=== PATIENT | female | born 1960 | race Caucasian/White ===

== ENCOUNTER → 2018-05-08 09:56 | Outpatient (CLI) | payer OTHER, SELFPAY ==
--- NOTE | 2018-05-08 11:08 | DIET.PN ---
DIABETES Nutrition Initial Assessment:? ASSESS:?? 58 yof referred for type 2 diabetes. Pt newly diagnosed. States she has been border line for several years. Also reports family history on father?s side. Pt has not been monitoring blood glucose as she was unsure how to use meter. Since diagnosis she has begun intermittent fasting. LABS: Per pt report:? A1c: 6.8 TC: 186 T HDL: 56 LDL: 118 ? MEDS:?? n/a ? Weight: 202 (8lb wt loss since 01/16/18) ? Exercise:? walking NUTRITION DX 1. Altered Nutrition related labs related to impaired glucose metabolism, lack of previous exposure to accurate nutrition information as evidenced by pt report, dx of diabetes, previous diet high in refined carbohydrates.? INTERVENTION(s): 1. Discussed pathophysiology of diabetes. Reviewed A1c and its correlation to blood glucose numbers. Discussed recommended BG ranges. 2. Discussed importance of self-monitoring, how often, and when to check. Provided demonstration on use of glucometer. 3. Reviewed hyper/hypoglycemia and treatment. 4. Reviewed safe disposal of equipment (strip/lancets/insulin needles). 5. Discussed impact of nutrition/diet on blood sugar control.? Discussed fed versus non-fed state.?? 6. Discussed the effect of carbohydrates/protein/fat on blood sugar control.? Stressed importance of consistent carbohydrate intake at each meal and provided instructions for recommended servings/portions of carbohydrates/protein per meal. Provided pt with educational material. 7. Reviewed carbohydrate counting and measuring carbohydrate content via serving sizes and reading nutrition labels.? Provided handouts.?? 8. Discussed the difference between simple versus complex carbohydrates and the effect of fiber on blood sugar control.? Discussed various methods to increase fiber content in diet. 9. Stressed importance of meal timing and not going >4-5 hours between meals. Encouraged adding protein to each meal to support glucose control. Provided list of protein foods. Discussed best protein options for heart health and to alleviate hunger. Patient agreeable. 10. Discussed healthy weight loss through diet and exercise to increase lean muscle mass.? Pt agreeable to walking daily. MONITOR/EVALUATE: Anticipate good compliance.? Nutrition follow-up schedule for 1 mo to review BG, weight, food record and discuss protein/fat, sugar substitutes, dining out, reading food labels, sodium.
== END ==
PROVIDERS: PCP Nurse Practitioner Family; Visit Provider Nurse Practitioner Family
DX: E11.9 Type 2 diabetes mellitus without complications (principal)
CPT/HCPCS: 97802

== ENCOUNTER → 2018-06-12 09:59 | Outpatient (CLI) | payer OTHER, SELFPAY ==
--- NOTE | 2018-06-12 10:53 | DIET.PN ---
INDIVIDUAL NUTRITION ASSESSMENT? ? ASSESS:?58 yo?seen for diabetes nutrition F/U. Pt recently began monitoring BG. Has discontinued intermittent fasting and is eating consistent carb intake at each meal. States she has cut down on portions and is aiming for more protein and vegetables. Admits she does not follow her plan as strictly on the weekends. ? LABS: A1c: 6.8 FB-136 (162x1) 2 hr PP:??120-160 (>180 x3) ? Weight: 196 # (202 05/08/18)? DIET: Per recall:? B: protein shake L: meat and cheese; cottage cheese Sn: protein bar D: protein, veg, starch ? EXERCISE:??walking/hiking most days ? NUTRITION Dx? 1. Altered nutrition related labs r/t type 2 DM, inconsistent carbohydrate intake as evidenced by pt report, dietary recall.?? ? INTERVENTION? 1. Reviewed blood sugar log and implications/reasons for elevated/decreased blood sugar.? Pt with good understanding.? 2. Reviewed carbohydrate counting and importance of consistent carbohydrate intake.? 3. Reviewed meal intake and importance of balanced meals (bebo to prevent overeating).??? 4. Provided information on fat/protein intake and ways to limit saturated fat. 5. Discussed alcohol intake and effects on BG. 6. Provided information on sick day guidelines. ? MONITOR/EVALUATE: Pt receptive to information provided.? Will schedule follow-up after new labs.
== END ==
PROVIDERS: PCP Nurse Practitioner Family; Visit Provider Nurse Practitioner Family
DX: E11.9 Type 2 diabetes mellitus without complications (principal)
CPT/HCPCS: 97803

== ENCOUNTER → 2019-01-09 15:48 | Outpatient (ROUT) | payer OTHER, SELFPAY ==
[2019-01-09 16:20] LABS: Hemoglobin A1C% w Est Avg Glu 6.4 % (4.0-6.0)
[2019-01-09 16:21] LABS: Alanine Aminotransferase 36 IU/L (<35); Aspartate Aminotransferase 39 IU/L (14-36); Blood Urea Nitrogen 10 mg/dL (7-17); Calcium 9.4 mg/dL (8.4-10.2); Carbon Dioxide 30 mmol/L (22-32); Chloride 101 mmol/L (98-107); Cholesterol 161 mg/dL (140-199); Estimated Glomerular Filt Rate > 60.0 mL/min (>60); Glucose 126 mg/dL (70-100); HDL Cholesterol 73 mg/dL (40-60); HEMOLYSIS < 15 (0-50); LDL Cholesterol Calculated 76 mg/dL (<100); Potassium 4.2 mmol/L (3.4-5.1); Sodium 138 mmol/L (137-145); Triglycerides 61 mg/dL (35-150)
== END ==
PROVIDERS: PCP Nurse Practitioner Family; Visit Provider Internal Medicine
DX: I10 Essential (primary) hypertension (principal); E78.2 Mixed hyperlipidemia; E11.9 Type 2 diabetes mellitus without complications
CPT/HCPCS: 80048; 80061; 83036; 84450; 84460

== ENCOUNTER → 2021-01-12 10:51 | Outpatient (CLI) | payer OTHER, MEDICAID, SELFPAY ==
[2021-01-12 12:19] LABS: Hemoglobin A1C% w Est Avg Glu 6.3 % (4.0-6.0)
[2021-01-12 12:36] LABS: Alanine Aminotransferase 24 IU/L (<35); Albumin 4.5 g/dL (3.5-5.0); Albumin Globulin Ratio 1.7 (1.0-2.8); Alkaline Phosphatase 67 U/L (38-126); Aspartate Aminotransferase 33 IU/L (14-36); BUN Creatinine Ratio 15.3 (6-22); Bilirubin Total 0.4 mg/dL (0.2-1.3); Blood Urea Nitrogen 9 mg/dL (7-17); Calcium 9.5 mg/dL (8.4-10.2); Carbon Dioxide 29 mmol/L (22-32); Chloride 103 mmol/L (98-107); Cholesterol 171 mg/dL (140-199); Estimated Glomerular Filt Rate > 60.0 mL/min (>60); Globulin 2.6 g/dL (1.7-4.1); Glucose 115 mg/dL (70-100); HDL Cholesterol 63 mg/dL (40-60); HEMOLYSIS 22 (0-50); LDL Cholesterol Calculated 84 mg/dL (<100); Potassium 4.4 mmol/L (3.4-5.1); Sodium 139 mmol/L (137-145); Total Protein 7.1 g/dL (6.3-8.2); Triglycerides 121 mg/dL (35-150)
[2021-01-12 16:07] LABS: Creatinine Urine Random 40.4 mg/dL
[2021-01-12 16:25] LABS: Vitamin D 25 Hydroxy (D3) 36.4 ng/mL (30.0-100.0)
[2021-01-12 16:39] LABS: Microalbumin Urine Random < 0.6 mg/dL (0-1.6)
== END ==
PROVIDERS: PCP Student in an Organized Health Care Education/Training Program; Referring Provider Student in an Organized Health Care Education/Training Program; Visit Provider Student in an Organized Health Care Education/Training Program
DX: E11.9 Type 2 diabetes mellitus without complications (principal); E11.69 Type 2 diabetes mellitus with other specified complication; E78.5 Hyperlipidemia, unspecified; E55.9 Vitamin D deficiency, unspecified; Z78.0 Asymptomatic menopausal state
CPT/HCPCS: 36415; 80053; 80061; 82043; 82306; 82570; 83036

== ENCOUNTER → 2021-01-18 07:54 | Outpatient (CLI) | payer OTHER, MEDICAID, SELFPAY ==
--- NOTE | 2021-01-18 07:55 | DI.MG.S_ITS ---
BILATERAL DIGITAL SCREENING MAMMOGRAM 3D/2D WITH CAD: 01/18/2021 CLINICAL: Routine screening. Comparison is made to exams dated: 12/21/2016 mammogram, 12/02/2015 mammogram, and 11/28/2014 mammogram - [facility]. There are scattered fibroglandular elements in both breasts. Current study was also evaluated with a Computer Aided Detection (CAD) system. There are benign calcifications in the left breast. No significant masses, calcifications, or other findings are seen in either breast. There has been no significant interval change. IMPRESSION: BENIGN There is no mammographic evidence of malignancy. A 1 year screening mammogram is recommended. This exam was interpreted at Station ID: [id number]. NOTE: For mammograms, a report in lay terms will be sent to the patient. Approximately 15% of breast malignancies will not be visualized mammographically. In the management of a palpable breast mass, a negative mammogram must not discourage biopsy of a clinically suspicious lesion. Electronically Signed By: Arcadio Min acr/penrad:01/18/2021 14:14:37 letter sent: Normal Exam ACR BI-RADS Category 2: Benign Finding(s) [id number]
== END ==
PROVIDERS: PCP Student in an Organized Health Care Education/Training Program; Referring Provider Student in an Organized Health Care Education/Training Program; Visit Provider Student in an Organized Health Care Education/Training Program
DX: Z12.31 Encounter for screening mammogram for malignant neoplasm of breast (principal)
CPT/HCPCS: 77063; 77067

== ENCOUNTER 2021-03-20 01:09 | Observation (INO) | payer OTHER, MEDICAID, SELFPAY ==
[2021-03-20] VITALS (11 sets, daily range): BP systolic 127–167; BP diastolic 65–98; PULSE 64–90; RESP 12–20; TEMP 36.3–36.8; O2SAT 92–98; BMI 32.5
--- NOTE | 2021-03-20 01:27 | DI.RAD.S_ITS ---
PROCEDURE: XR FEMUR RT MIN 2V INDICATIONS: Trauma, obvious injury TECHNIQUE: AP images of the femur were acquired. COMPARISON: [facility], CT, CT ANGIO LE RT, 03/20/2021, 2:04. FINDINGS: Bones: No fractures or dislocations. No suspicious bony lesions. Age-appropriate bony degenerative changes are seen. Soft tissues: Focal soft tissue swelling is seen along the medial aspect of the distal thigh. IMPRESSION: Distal thigh soft tissue swelling seen medially, which is attributed to a hematoma. Degenerative changes, without acute bony abnormality. Note: No significant discrepancy from the preliminary report. Dictated by: Fran Tatum M.D. on 03/20/2021 at 8:10 Approved by: Fran Tatum M.D. on 03/20/2021 at 8:11
[2021-03-20] MEDS: ONDANSETRON 4 MG/2 ML INJ IV ×2 (01:51→10:29)
[2021-03-20] MEDS: HYDROMORPHONE 1 MG INJ IV (01:51)
[2021-03-20] MEDS: SODIUM CHLORIDE 0.9% 500 ML 1000 ML IV (01:52)
[2021-03-20 02:00] LABS: Add Manual Diff / Slide Review NO; Basophils Absolute Auto 100 /uL (0-100); Basophils Percent Auto 0.6 % (0-2); Eosinophils Absolute Auto 100 /uL (0-450); Eosinophils Percent Auto 0.9 % (2-4); Hematocrit 35.8 % (36-46); Lymphocytes Absolute Auto 1800 /uL (1100-4500); Lymphocytes Percent Auto 12.5 % (25-40); Mean Corpuscular HGB Conc 33.6 % (30-36); Mean Corpuscular Hemoglobin 30.9 PG (26-34); Mean Corpuscular Volume 92.1 fL (80-100); Monocytes Absolute Auto 700 /uL (0-900); Monocytes Percent Auto 5.1 % (3-14); Neutrophils Absolute Auto 11400 /uL (1500-7000); Neutrophils Percent Auto 80.9 % (50-75); Platelet Count 383 X10^3/uL (150-400); Red Blood Cell Count 3.89 X10^6/uL (4.0-5.2); Red Cell Distribution Width 13.5 % (11.6-14.8); White Blood Cell Count 14.2 X10^3/uL (4.5-11.0)
--- NOTE | 2021-03-20 02:02 | DI.CT.S_ITS ---
PROCEDURE: CT ANGIO LE RT INDICATIONS: pain severe swelling after injury, vascular? TECHNIQUE: After the administration of intravenous contrast, 2.5 mm sections acquired from T12 to the feet, with optional delayed image acquisition from the knees to the feet. 3-dimensional maximum intensity projection (MIP) coronal and sagittal reformats, and/or 3-dimensional volume rendering reformatting was then performed. For radiation dose reduction, the following was used: automated exposure control. COMPARISON: [facility], CR, XR FEMUR RT MIN 2V, 03/20/2021, 1:30. FINDINGS: Image quality: The bolus of contrast is poorly seen distally. Extravascular tissues: Non opacified bowel loops demonstrate normal wall thickness and enhancement. No free fluid or air. No retroperitoneal or mesenteric adenopathy. The uterus appears normal for age. No adnexal masses are seen. No ventral hernias. Bladder wall thickness is normal. No inguinal hernias or adenopathy. No suspicious bony lesions. No vertebral body compression fractures. Along the medial aspect of the knee, there is an irregular hematoma seen that measures 13.8 cm craniocaudal by 12.3 cm AP by 5.5 cm transversely. Within the hematoma, there is a band of hyperdensity seen, as on series 5, image 283. Regional mass effect from the hematoma can be seen, with the distal thigh musculature deviated laterally. Soft tissue swelling is seen anterior to the patella. No fracture of the distal femur or the knee can be seen. No fractures are seen more proximally. Generalized degenerative changes are seen. Abdominal aorta: Normal. Right lower extremity: The right common iliac artery and the right external iliac artery appear normal, with atherosclerotic calcification seen. The right internal iliac artery is within normal limits. The right profunda femoris artery is within normal limits. The right superficial femoral artery is likewise within normal limits. The popliteal artery is within normal limits. The proximal portions of the trifurcation vessels can be seen and appear normal. IMPRESSION: Significant soft tissue hematoma seen along the medial aspect of the knee. There is high suspicion for active extravasation seen within the hematoma. No bony fracture can be seen. No significant arterial abnormality is seen. Note: No significant discrepancy from the preliminary report. Dictated by: Fran Tatum M.D. on 03/20/2021 at 7:48 Approved by: Fran Tatum M.D. on 03/20/2021 at 7:54
[2021-03-20 02:07] LABS: BUN Creatinine Ratio 16.9 (6-22); Blood Urea Nitrogen 10 mg/dL (7-17); Calcium 9.3 mg/dL (8.4-10.2); Carbon Dioxide 22 mmol/L (22-32); Chloride 103 mmol/L (98-107); Estimated Glomerular Filt Rate > 60.0 mL/min (>60); Glucose 141 mg/dL (70-100); HEMOLYSIS < 15 (0-50); Sodium 132 mmol/L (137-145)
--- NOTE | 2021-03-20 02:41 | PC.NURSE ---
pt was going up some steps on a camper when her foot got caught and twisted her leg, pt was able to bear minimal weight at first, accident occurred at 2200, she applied ice and took ibuprofen but the pain continued to increase and pt is now unable to bear any weight on her right leg, knee noted bruised with swelling
--- NOTE | 2021-03-20 02:46 | PC.NURSE ---
about 2200 pt was walking up some steps on a camper when her leg was caught between 2 steps and twisted, pt was able to bear minimal weight on the right leg at first, pt applied ice and took some ibuprofen but the pain continued to increase and now pt is unable to bear any weight on the leg, bruising noted around and above the knee pedal pulses +
[2021-03-20] MEDS: HYDROMORPHONE 0.5 MG INJ IV ×2 (04:10→08:53)
--- NOTE | 2021-03-20 04:23 | ED.LOWEXIN ---
HPI - Extremity Injury (Lower) General Chief Complaint: Extremity Injury, Lower Stated Complaint: rt knee pain Time Seen by Provider: 03/20/21 01:13 Source: patient Mode of arrival: Wheelchair History of Present Illness HPI Narrative: 61F nonsmoker with history of he GERD, hypertension and hyperlipidemia as well as type 2 diabetes presents with her significant other and a chief complaint of a fall resulting in significant knee pain. She had been in her normal state of health when she was backing down some unsteady stairs from her RV when her leg slipped between the stairs and she fell backwards twisting and injuring her knee. She denies any head, neck or back pain. She denies any numbness, tingling or weakness. She has ext with it pain with any palpation or range of motion of her knee. She takes no blood thinners. She last ate food at 6:00 p.m. and had a few cocktails at 9:00 p.m.. Related Data Home Medications Medication Instructions Recorded Confirmed esomeprazole magnesium 20 mg 20 mg PO DAILY 01/12/21 01/12/21 capsule,delayed release (Nexium 24HR) levocetirizine 5 mg tablet (Xyzal) 5 mg PO DAILY 01/12/21 01/12/21 metformin 500 mg tablet,extended 500 mg PO BID 01/12/21 01/12/21 release 24 hr onetouch delica lancets extra fine 01/12/21 01/12/21 33guage onetouch t/s strip 01/12/21 01/12/21 onetouch verio IQ blood glucose 01/12/21 01/12/21 meter Previous Rx's Medication Instructions Recorded alprazolam 0.5 mg tablet 0.5 mg PO DAILY PRN #10 tab 01/19/21 atorvastatin 10 mg tablet 10 mg PO BEDTIME #90 tab 01/19/21 losartan 50 mg tablet 50 mg PO DAILY #90 tab 01/19/21 oxycodone 5 mg tablet 5 mg PO PACUNOW PRN #10 tab 03/20/21 Allergies Allergy/AdvReac Type Severity Reaction Status Date / Time No Known Allergies Allergy Uncoded 01/12/21 10:00 Review of Systems Review of Systems Narrative: GENERAL: Denies chills, fatigue, malaise, fever, sweats. HEENT: Denies sinus pain, ear pain, sore throat, difficulty swallowing, dizziness. RESPIRATORY: Denies dyspnea, cough, wheezing, hemoptysis, sputum. CARDIOVASCULAR: Denies chest pain, palpitations, orthopnea, edema, GASTROINTESTINAL: Denies nausea, vomiting, abdominal pain, diarrhea, constipation, melena. : Denies dysuria, frequency, incontinence, hematuria, urinary retention. MUSCULOSKELETAL: see hPI SKIN: Denies rash, skin lesions, or other NEUROLOGIC: Denies weakness, headache, numbness, change in speech, confusion, seizures, incoordination. PSYCHIATRIC: No concerning psychosocial issues. 12 point review of systems is negative except for those stated above Patient History Medical History Allergies Chicken pox Hearing loss Measles Vision disorder Surgical History Anesthesia History of tooth extraction Family History Father Diabetes mellitus History of heart disease Grandmother Cervical cancer Diabetes mellitus Grandfather History of heart disease Grandmother Mental health problem Social History household members: spouse Smoking Status: Current every day smoker Smoking Status: Current every day smoker alcohol intake frequency: a few times a month Substance Use Type: does not use Exam Narrative Exam Narrative: GENERAL: [61] year old patient appears stated age. Well-developed patient, in obvious, significant distress complaining of severe right knee pain. GCS 15 HEAD: Atraumatic. Normocephalic. EYES: Pupils equal round and reactive. Extraocular motions intact. No scleral icterus. No injection or drainage. ENT: Nose without bleeding, purulent drainage. Throat without erythema, tonsillar hypertrophy or exudate. Airway patent. NECK: Trachea midline. Non tender CARDIOVASCULAR: Regular rate and rhythm without murmurs, gallops, or rubs. RESPIRATORY: Clear to auscultation. Breath sounds equal bilaterally. No wheezes, rales, or rhonchi. GASTROINTESTINAL: Abdomen soft, non-tender, nondistended. EXTREMITIES: Large 15 x 15 cm tense hematoma just proximal to right knee, well-circumscribed, minimal mottling of skin, quite tender. Compartments are soft, patient able to wiggle toes, ankle and foot without significant pain, dorsalis pedis intact. BACK: Nontender without deformity or crepitance. No flank tenderness. NEURO: AOx3. SKIN: No rash or erythema of visible areas Initial Vital Signs Initial Vital Signs: Vital Signs Temperature 97.3 F L 03/20/21 01:18 Pulse Rate 90 03/20/21 01:18 Respiratory Rate 20 03/20/21 01:18 Blood Pressure 167/98 H 03/20/21 01:18 Pulse Oximetry 98 03/20/21 01:18 Course Orders Ordered: Discontinued Medications Acetaminophen (Acetaminophen 325 Mg Tablet) 975 mg PO PACUNOW ONE Stop: 03/20/21 09:51 Albuterol (Albuterol 2.5 Mg/3 Ml Neb (Adult)) 2.5 mg INH NOW PRN PRN Reason: Coughing, Wheezing, Dyspnea Bupivacaine HCl (Bupivacaine 0.25% (Pf) Vial) 30 ml INJ NOW ONE Stop: 03/20/21 09:52 Last Admin: 03/20/21 09:51 Dose: 30 ml Documented by: SHERRIE Hydromorphone HCl (Hydromorphone 1 Mg Inj) 1 mg IV NOW ONE Stop: 03/20/21 01:25 Last Admin: 03/20/21 01:51 Dose: 1 mg Documented by: JULITA Hydromorphone HCl (Hydromorphone 0.5 Mg Inj) 0.5 mg IV NOW ONE Stop: 03/20/21 03:53 Last Admin: 03/20/21 04:10 Dose: 0.5 mg Documented by: JULITA Hydromorphone HCl (Hydromorphone 0.5 Mg Inj) 0.5 mg IV NOW ONE Stop: 03/20/21 08:52 Last Admin: 03/20/21 08:53 Dose: 0.5 mg Documented by: PAVAN Hydromorphone HCl (Hydromorphone 2 Mg Inj) 0 mg IV Q5M PRN PRN Reason: Pain, Severe (7-10) Last Admin: 03/20/21 10:28 Dose: 0.5 mg Documented by: YON Sodium Chloride (Normal Saline 0.9%) 500 mls @ 1,000 mls/hr IV BOLUS ONE Stop: 03/20/21 01:53 Last Infusion: 03/20/21 03:24 Dose: 0 mls/hr Documented by: Admin: 03/20/21 01:52 Dose: 1,000 mls/hr Documented by: JULITA Lactated Ringer's (Lactated Ringers) 1,000 mls @ 42 mls/hr IV CONT TYLER Last Infusion: 03/20/21 10:43 Dose: 0 mls/hr Documented by: Admin: 03/20/21 10:26 Dose: 42 mls/hr Documented by: YON Lactated Ringer's (Lactated Ringers) 1,000 mls @ 42 mls/hr IV CONT TYLER Ibuprofen (Ibuprofen 600 Mg Tablet) 600 mg PO Q6HR PRN PRN Reason: Fever/Mild Pain (1-3) Last Admin: 03/20/21 12:54 Dose: 600 mg Documented by: EMMETT Ondansetron HCl (Ondansetron 4 Mg/2 Ml Inj) 4 mg IV NOW ONE Stop: 03/20/21 01:25 Last Admin: 03/20/21 01:51 Dose: 4 mg Documented by: JULITA Ondansetron HCl (Ondansetron 4 Mg/2 Ml Inj) 4 mg IV NOW PRN PRN Reason: Nausea And Vomiting Last Admin: 03/20/21 10:29 Dose: 4 mg Documented by: YON Oxycodone HCl (Oxycodone Ir 5 Mg Tablet) 5 mg PO PACUNOW PRN PRN Reason: Mild or moderate pain Last Admin: 03/20/21 10:29 Dose: 5 mg Documented by: YON Reevaluation(s) Reevaluation #1: pain improved after Dilaudid Reevaluation #2: compartments remain soft Time: 05:53 Consultations Consultation #1: Initial discussion with local orthopedist, happy to see the patient in the morning and evaluate. Recommended discussion with [facility] in the interim discussed with [facility] extremity trauma, states that unless bones or compartments involved that they would have general surgery manage, sounds like it will need a decompression call to Dr. Turner (Gen Surg) here at and she is happy to come see patient in ED at 0700 Vital Signs Vital signs: Vital Signs - 8 hr 03/20/21 01:18 Temperature 97.3 F L Pulse Rate 90 Respiratory Rate 20 Blood Pressure 167/98 H Pulse Oximetry 98 MDM - Extremity Injury (Lower) Lab Data Result diagrams: 03/20/21 01:45 03/20/21 01:45 Labs: Lab Results 03/20/21 03/20/21 03/20/21 Range/Units 01:45 01:45 05:36 WBC 14.2 H (4.5-11.0) X10^3/uL RBC 3.89 L (4.0-5.2) X10^6/uL Hgb 12.0 (12.0-16.0) g/dL Hct 35.8 L (36-46) % MCV 92.1 (80-100) fL MCH 30.9 (26-34) PG MCHC 33.6 (30-36) % RDW 13.5 (11.6-14.8) % Plt Count 383 (150-400) X10^3/uL Neut % (Auto) 80.9 H (50-75) % Lymph % (Auto) 12.5 L (25-40) % Lamb % (Auto) 5.1 (3-14) % Eos % (Auto) 0.9 L (2-4) % Baso % (Auto) 0.6 (0-2) % Neut # (Auto) 50847 H (3976-8829) /uL Lymph # (Auto) 1800 (1219-9066) /uL Lamb # (Auto) 700 (0-900) /uL Eos # (Auto) 100 (0-450) /uL Baso # (Auto) 100 (0-100) /uL Sodium 132 L (137-145) mmol/L Potassium 4.0 (3.4-5.1) mmol/L Chloride 103 (98-107) mmol/L Carbon Dioxide 22 (22-32) mmol/L BUN 10 (7-17) mg/dL Creatinine 0.59 (0.52-1.04) mg/dL Estimated GFR > 60.0 (>60) mL/min BUN/Creatinine Ratio 16.9 (6-22) Glucose 141 H (70-100) mg/dL Calcium 9.3 (8.4-10.2) mg/dL SARS-CoV-2 (PCR) Negative (Negative) Imaging Data Extremity x-ray #1: Attestation: I personally reviewed and interpreted this imaging study as follows: My Impression: No Fx CT LE: Radiologist's Impression: Large hematoma the distal medial right thigh up to 12.6 by Manzo 0.4 cm with a linear hyperdense focus at the inferior margin of the hematoma most consistent with active extravasation. She hematoma result and lateralization and partial mass effect upon adjacent thigh. Patency of flow throughout the visual lysed portions of the right leg including right common iliac, right external iliac, right common femoral, right superficial femoral, right popliteal and superior calf vessels are all unremarkable Discharge Plan Departure Patient Disposition: Admitted As Inpatient Clinical Impression: Hematoma of right lower extremity Admit Date/Time: 03/20/21 09:11 Admit Provider: Ingrid Turner
[2021-03-20 07:33] LABS: COVID19 - ADMIT (NP swab/PCR) Negative (Negative)
--- NOTE | 2021-03-20 08:42 | P.HP_ITS ---
History of Present Illness History of Present Illness Date Patient Seen: 03/20/21 Time Patient Seen: 08:42 Chief complaint: rt knee pain Narrative: Fell and caught right leg on step of RV. No fracture or neurologic injury. Large expanding hematoma above knee. Patient History Medical History Allergies Chicken pox Hearing loss Measles Vision disorder Surgical History Anesthesia History of tooth extraction Family & Social History Family History Father Diabetes mellitus History of heart disease Grandmother Cervical cancer Diabetes mellitus Grandfather History of heart disease Grandmother Mental health problem Safety & Behavioral: Feels Safe in Current Yes Environment Tobacco & Substance use: Smoking Status Current every day smoker alcohol intake frequency a few times a month Substance Use Type does not use Meds Home Medications and Allergies Home Medications Medication Instructions Recorded Confirmed Type esomeprazole magnesium 20 mg 20 mg PO DAILY 01/12/21 01/12/21 History capsule,delayed release (Nexium 24HR) levocetirizine 5 mg tablet (Xyzal) 5 mg PO DAILY 01/12/21 01/12/21 History metformin 500 mg tablet,extended 500 mg PO BID 01/12/21 01/12/21 History release 24 hr onetouch delica lancets extra fine 01/12/21 01/12/21 History 33guage onetouch t/s strip 01/12/21 01/12/21 History onetouch verio IQ blood glucose 01/12/21 01/12/21 History meter alprazolam 0.5 mg tablet 0.5 mg PO DAILY PRN #10 tab 01/19/21 Rx atorvastatin 10 mg tablet 10 mg PO BEDTIME #90 tab 01/19/21 Rx losartan 50 mg tablet 50 mg PO DAILY #90 tab 01/19/21 Rx Allergies Allergy/AdvReac Type Severity Reaction Status Date / Time No Known Allergies Allergy Uncoded 01/12/21 10:00 Exam Vital Signs (past 8 hours): - 03/20/21 01:18 Temperature 97.3 F L Pulse Rate 90 Respiratory Rate 20 Blood Pressure 167/98 H Pulse Oximetry 98 Oxygen Delivery Method Room Air Const General: cooperative and in distress Nutritional Appearance: well nourished HENMT Head: normocephalic and atraumatic Eyes Sclera: sclerae normal Neck Neck: trachea midline Resp Effort & Inspection: normal respiratory effort and able to speak in complete sentences Cardio Rate: bradycardic Rhythm: regular rhythm GI Palpation: soft Skin General: elasticity normal Neuro General: patient alert and patient oriented x3 Psych Appearance: grossly normal Judgment: judgment good Objective Labs Result Diagrams: 03/20/21 01:45 03/20/21 01:45 Labs: Laboratory Results - last 24 hr 03/20/21 03/20/21 03/20/21 01:45 01:45 05:36 WBC 14.2 H RBC 3.89 L Hgb 12.0 Hct 35.8 L MCV 92.1 MCH 30.9 MCHC 33.6 RDW 13.5 Plt Count 383 Neut % (Auto) 80.9 H Lymph % (Auto) 12.5 L [place] % (Auto) 5.1 Eos % (Auto) 0.9 L Baso % (Auto) 0.6 Neut # (Auto) 84456 H Lymph # (Auto) 1800 [place] # (Auto) 700 Eos # (Auto) 100 Baso # (Auto) 100 Sodium 132 L Potassium 4.0 Chloride 103 Carbon Dioxide 22 BUN 10 Creatinine 0.59 Estimated GFR > 60.0 BUN/Creatinine Ratio 16.9 Glucose 141 H Calcium 9.3 SARS-CoV-2 (PCR) Negative Assessment & Plan Assessment & Plan narrative: Right lower extremity hematoma Plan: OR for evacuation and drain placement. COVID-19 COVID-19 status: Negative Time Spent With Patient Time with patient: less than 30 minutes Critical Care time: I spent a total of [] minutes of critical care time on this patient's care today; this time is exclusive of procedural time.
[2021-03-20] MEDS: BUPIVACAINE 0.25% (PF) VIAL 30 ML INJ (09:51)
--- NOTE | 2021-03-20 09:52 | SUR.OPER ---
Supine on padded OR bed, head on pillow, arms secured on padded arm boards at <90 degrees abduction, legs uncrossed, safety belt at thigh, tape over blanket over lower legs.
--- NOTE | 2021-03-20 10:17 | P.OP_ITS ---
Operative Date/Time/Diagnoses Date of procedure: 03/20/21 Time of procedure: 10:17 Pre-op diagnosis: right upper leg hematoma Post-op diagnosis: same Procedure & Clinicians Procedure: Evacuation of hematoma right upper leg Same procedure as scheduled: Yes Indications: Right upper leg hematoma Surgeon: Ingrid Turner Click Yes if Unassisted: Yes Anesthesia Type: General Operative Notes Findings: Large right upper thigh hematoma, medial down to the knee. Approximately 600 cc blood clot evacuated Closure Type: primary Specimen(s): none sent Prosthetic devices, grafts, tissues, transplants, or devices: Fifteen Noah-Escalante drain Estimated Blood Loss (mL): 15 Procedure in detail: Prep diagnosis: Right upper leg hematoma Postop diagnosis: Same Operative procedure: Evacuation of right upper leg hematoma Surgeon: Danielle Turner MD Anesthetic: General with ET tube intubation along with local Findings: Approximately 600 cc blood clot evacuated. Drains placed. No active bleeding Procedure: Patient placed in a supine position. Prepped and draped in sterile fashion. Small medial incision was created above the knee measuring 4 cm in size. The clot was evacuated without complication. I then placed a 15 [place]so drain into the space and exited upper medial thigh. Sutured the drain to the skin with a 3-0 nylon. And then closed the incision with interrupted 3-0 mattress sutures. Also nylon. Dry dressings and compression wrap placed. Patient was awakened, extubated, taken to recovery room in stable condition. Instrument, sponge count, and needle count were all correct. Specimen: None Blood loss: 15 mL active bleeding, 600 mL of old blood Complications: none Post-operative Condition: stable Disposition: PACU Plan for aftercare: discharge home.
[2021-03-20] MEDS: LACTATED RINGERS 1,000 ML 42 ML IV (10:26)
[2021-03-20] MEDS: HYDROMORPHONE 2 MG INJ IV (10:28)
[2021-03-20] MEDS: OXYCODONE IR 5 MG TABLET PO (10:29)
--- NOTE | 2021-03-20 11:46 | PC.NURSE ---
Addendum entered by Ivana Mosquera R.N. 03/20/21 14:43: Patient reports nausea has improved. Given discharge instructions regarding f/u appointment with [facility], VY drain care, wound care, medication and activity. Patient verbalizes understanding. VSS. VY emptied. Patient denies pain. Addendum entered by Ivana Mosquera R.N. 03/20/21 13:00: Patient feeling nauseated post lunch. CBG 172, VSS. Patient vomited 250 cc. Fax sent to OR to update MD. Original Note: Patient A/O x 3, arrived to floor via stretcher, denies pain. Up to restroom with SBA and FWW for void, 300cc clear gabriel urine out. Patient up to chair. RLE dsg remains intact. VY drain compressed, intact. VSS. Patient endorses nausea, crackers and cheese given. Patient reports improvement. Patient remains [place] locked. remains bedside. Denies further needs at this time. Instructed patient to call before getting out of chair. Verbalized understanding.
[2021-03-20] MEDS: IBUPROFEN 600 MG TABLET PO (12:54)
== END 2021-03-20 14:45 | disposition home or self-care (01) ==
LOC: ED 05:52 → OR 09:06 → ED 09:09 → AC 10:31
PROVIDERS: Admitting Provider Surgery; Emergency Provider Emergency Medicine; PCP Student in an Organized Health Care Education/Training Program; Referring Provider Emergency Medicine; Visit Provider Surgery
PROC: (CPT 10140; principal; 2021-03-20 10:45)
DX: S70.11XA Contusion of right thigh, initial encounter (principal); W10.9XXA Fall (on) (from) unspecified stairs and steps, initial encounter; Y92.89 Other specified places as the place of occurrence of the external cause; K21.9 Gastro-esophageal reflux disease without esophagitis; I10 Essential (primary) hypertension; E78.5 Hyperlipidemia, unspecified; E11.9 Type 2 diabetes mellitus without complications; Z79.84 Long term (current) use of oral hypoglycemic drugs; F17.210 Nicotine dependence, cigarettes, uncomplicated; Z20.822 Contact with and (suspected) exposure to COVID-19
CPT/HCPCS: 10140; 36415; 73552; 73706; 80048; 82962; 85025; 87635; 96361; 96374; 96375; 96376; 99218; 99284; C9803; G0378; J1170; J2250; J2405; J2704; J2765; J3010; Q9967

== ENCOUNTER → 2021-04-08 14:55 | Outpatient (CLI) | payer OTHER, MEDICAID, SELFPAY ==
[2021-03-20 09:20] VITALS: BMI 32.5
== END ==
PROVIDERS: PCP Student in an Organized Health Care Education/Training Program; Referring Provider Student in an Organized Health Care Education/Training Program; Visit Provider Family Medicine
DX: T81.31XA Disruption of external operation (surgical) wound, not elsewhere classified, initial encounter (principal); S71.101A Unspecified open wound, right thigh, initial encounter; L08.9 Local infection of the skin and subcutaneous tissue, unspecified; R60.0 Localized edema; E11.9 Type 2 diabetes mellitus without complications; Z72.0 Tobacco use
CPT/HCPCS: 36415; 80053; 83036; 85025; 85651; 86140; 87070; 87075; 87077; 87185; 87186; 87205; 99204; 99213

== ENCOUNTER → 2021-04-08 16:09 | Outpatient (CLI) | payer OTHER, MEDICAID, SELFPAY ==
[2021-03-20 09:20] VITALS: BMI 32.5
[2021-04-08 17:39] LABS: Add Manual Diff / Slide Review NO; Basophils Absolute Auto 100 /uL (0-100); Eosinophils Absolute Auto 300 /uL (0-450); Eosinophils Percent Auto 3.1 % (2-4); Hematocrit 33.5 % (36-46); Hemoglobin 11.4 g/dL (12.0-16.0); Lymphocytes Absolute Auto 2100 /uL (1100-4500); Lymphocytes Percent Auto 22.1 % (25-40); Mean Corpuscular Hemoglobin 31.6 PG (26-34); Mean Corpuscular Volume 92.9 fL (80-100); Monocytes Absolute Auto 500 /uL (0-900); Monocytes Percent Auto 5.2 % (3-14); Neutrophils Absolute Auto 6400 /uL (1500-7000); Neutrophils Percent Auto 68.6 % (50-75); Platelet Count 545 X10^3/uL (150-400); Red Cell Distribution Width 13.8 % (11.6-14.8); White Blood Cell Count 9.3 X10^3/uL (4.5-11.0)
[2021-04-08 17:58] LABS: Erythrocyte Sedimentation Rate 38 MM/HR (0-20)
[2021-04-08 18:10] LABS: Hemoglobin A1C% w Est Avg Glu 5.9 % (4.0-6.0)
[2021-04-08 18:11] LABS: Alanine Aminotransferase 28 IU/L (<35); Albumin 4.4 g/dL (3.5-5.0); Albumin Globulin Ratio 1.8 (1.0-2.8); Alkaline Phosphatase 109 U/L (38-126); Aspartate Aminotransferase 32 IU/L (14-36); BUN Creatinine Ratio 16.9 (6-22); Bilirubin Total 0.3 mg/dL (0.2-1.3); Blood Urea Nitrogen 10 mg/dL (7-17); C-Reactive Protein Quant 1.2 mg/dL (<1.0); Calcium 9.8 mg/dL (8.4-10.2); Carbon Dioxide 27 mmol/L (22-32); Chloride 102 mmol/L (98-107); Estimated Glomerular Filt Rate > 60.0 mL/min (>60); Globulin 2.5 g/dL (1.7-4.1); Glucose 114 mg/dL (70-100); HEMOLYSIS < 15 (0-50); Potassium 4.6 mmol/L (3.4-5.1); Sodium 136 mmol/L (137-145); Total Protein 6.9 g/dL (6.3-8.2)
== END ==
PROVIDERS: PCP Student in an Organized Health Care Education/Training Program; Referring Provider Family Medicine; Visit Provider Family Medicine
DX: L08.9 Local infection of the skin and subcutaneous tissue, unspecified (principal)
CPT/HCPCS: 36415; 80053; 83036; 85025; 85651; 86140

== ENCOUNTER → 2021-04-12 10:07 | Outpatient (CLI) | payer OTHER, MEDICAID, SELFPAY ==
[2021-03-20 09:20] VITALS: BMI 32.5
== END ==
PROVIDERS: PCP Student in an Organized Health Care Education/Training Program; Referring Provider Student in an Organized Health Care Education/Training Program; Visit Provider Family Medicine
DX: T81.31XA Disruption of external operation (surgical) wound, not elsewhere classified, initial encounter (principal); S71.101A Unspecified open wound, right thigh, initial encounter
CPT/HCPCS: 99213

== ENCOUNTER → 2021-04-14 13:46 | Outpatient (CLI) | payer OTHER, MEDICAID, SELFPAY ==
[2021-03-20 09:20] VITALS: BMI 32.5
== END ==
PROVIDERS: PCP Student in an Organized Health Care Education/Training Program; Referring Provider Student in an Organized Health Care Education/Training Program; Visit Provider Family Medicine
DX: T81.89XA Other complications of procedures, not elsewhere classified, initial encounter (principal); S71.101A Unspecified open wound, right thigh, initial encounter; L08.9 Local infection of the skin and subcutaneous tissue, unspecified; B95.61 Methicillin susceptible Staphylococcus aureus infection as the cause of diseases classified elsewhere; R60.0 Localized edema; E11.628 Type 2 diabetes mellitus with other skin complications; Z72.0 Tobacco use; Z79.84 Long term (current) use of oral hypoglycemic drugs
CPT/HCPCS: 11042; 99213

== ENCOUNTER → 2021-04-20 11:38 | Outpatient (CLI) | payer OTHER, MEDICAID, SELFPAY ==
[2021-03-20 09:20] VITALS: BMI 32.5
--- NOTE | 2021-04-20 11:47 | DI.CT.S_ITS ---
PROCEDURE: CT LE RT W CON INDICATIONS: Unspecified open wound, right thigh, initial encounter TECHNIQUE: After the administration of intravenous contrast, 2 mm axial sections acquired of the left thigh , with coronal and sagittal reformats. COMPARISON: [facility], CT, CT ANGIO LE RT, 03/20/2021, 2:04. FINDINGS: Image quality: Excellent. Bones: No acute osseous fracture or dislocation. No focal cortical destruction is seen to suggest osteomyelitis. Mild degenerative changes are seen in the right hip and right knee. Soft tissues: Small skin defect is seen at the medial aspect of the lower thigh. A few foci of adjacent subcutaneous gas are most likely reactive secondary to medication with the skin surface. An irregular peripherally enhancing fluid collection is seen at the medial aspect of the lower thigh in the region of the prior hematoma measuring approximately 10.3 x 6.9 x 2.6 cm. Patchy edema and fluid are seen tracking towards the defect in the skin surface. Findings are suspicious for abscess formation. There is surrounding subcutaneous soft tissue edema. No communication with the knee joint is seen. Edema extends to the level of the deep investing fascial layer of the distal quadriceps muscle without loss of intramuscular fat planes. No significant knee joint effusion. Mildly prominent right inguinal lymph nodes are most likely reactive. IMPRESSION: Peripherally enhancing fluid collection at the anterior medial aspect of the lower thigh in the region of the prior hematoma is suspicious for development of an abscess. There is a tract extending to a defect in the skin surface at the medial thigh. Surrounding subcutaneous soft tissue edema is seen. No involvement of the deep muscular compartments is seen. No signs of septic arthritis or osteomyelitis. Dictated by: Manuel Tapia M.D. on 04/20/2021 at 16:17 Approved by: Manuel Tapia M.D. on 04/20/2021 at 16:25
== END ==
PROVIDERS: PCP Student in an Organized Health Care Education/Training Program; Referring Provider Family Medicine; Visit Provider Family Medicine
DX: S71.101A Unspecified open wound, right thigh, initial encounter (principal); X58.XXXA Exposure to other specified factors, initial encounter
CPT/HCPCS: 73701

== ENCOUNTER → 2021-04-21 09:51 | Outpatient (CLI) | payer OTHER, MEDICAID, SELFPAY ==
[2021-03-20 09:20] VITALS: BMI 32.5
== END ==
PROVIDERS: PCP Student in an Organized Health Care Education/Training Program; Referring Provider Student in an Organized Health Care Education/Training Program; Visit Provider Family Medicine
DX: T81.31XA Disruption of external operation (surgical) wound, not elsewhere classified, initial encounter (principal); S71.101A Unspecified open wound, right thigh, initial encounter; L02.415 Cutaneous abscess of right lower limb; L08.9 Local infection of the skin and subcutaneous tissue, unspecified; B95.61 Methicillin susceptible Staphylococcus aureus infection as the cause of diseases classified elsewhere; R60.0 Localized edema; E11.628 Type 2 diabetes mellitus with other skin complications; Z72.0 Tobacco use
CPT/HCPCS: 99213; 99214

== ENCOUNTER → 2021-04-22 16:46 | Outpatient (CLI) | payer OTHER, MEDICAID, SELFPAY ==
[2021-03-20 09:20] VITALS: BMI 32.5
[2021-04-22 17:36] LABS: COVID19 -Nasal RAPID POSITIVE (Negative)
== END ==
PROVIDERS: PCP Student in an Organized Health Care Education/Training Program; Visit Provider Surgery
DX: U07.1 COVID-19; S80.11XD Contusion of right lower leg, subsequent encounter; E11.9 Type 2 diabetes mellitus without complications; Z01.812 Encounter for preprocedural laboratory examination
CPT/HCPCS: 87635; 99212

== ENCOUNTER 2021-04-24 07:39 | Day surgery (SDC) | payer OTHER, MEDICAID, SELFPAY ==
[2021-03-20 09:20] VITALS: BMI 32.5
[2021-04-24] VITALS (8 sets, daily range): BP systolic 111–154; BP diastolic 61–72; PULSE 56–72; RESP 12–19; TEMP 36.4–37; O2SAT 96–100; BMI 32.1
[2021-04-24] MEDS: LACTATED RINGERS 1,000 ML 42 ML IV (08:39)
--- NOTE | 2021-04-24 08:42 | PM.PREOP ---
Pre-operative Note COVID-19 COVID-19 status: Positive Result date/Date tested (Pos, Neg/Pending): 04/23/21 Criteria for continued procedure: Expected advancement of disease process, Increased loss of function and Non-surgical alternatives not available or appropriate per current SOC Interval Note History & Physical reviewed/Exam performed by Physician: Yes Changes to H&P: No
--- NOTE | 2021-04-24 09:39 | SUR.OPER ---
Supine on padded OR bed, head on pillow, arms secured on padded arm boards at <90 degrees abduction, legs uncrossed, safety belt at thigh, tape over blanket over lower legs.
[2021-04-24] MEDS: BUPIVACAINE 0.25% W/ EPI 30 ML VIAL INJ (09:43)
--- NOTE | 2021-04-24 09:55 | P.OP_ITS ---
Operative Date/Time/Diagnoses Date of procedure: 04/24/21 Time of procedure: 09:55 Pre-op diagnosis: infected right thigh residual hematoma Post-op diagnosis: same Procedure & Clinicians Procedure: I and D of right thigh infected hematoma Same procedure as scheduled: Yes Indications: Infection Surgeon: Ingrid Turner Click Yes if Unassisted: Yes Anesthesia Type: General and Local Operative Notes Findings: Mildly infected residual right inner thigh hematoma Closure Type: primary Specimen(s): none sent Applied: drain(s) (10 [place]) Estimated Blood Loss (mL): 50 Procedure in detail: Preop diagnosis: Infected residual right thigh hematoma Postop diagnosis: Same Operative procedure: Incision and drainage of right thigh, infected, hematoma Anesthetic: Local with general adult LMA Findings: Residual hematoma that with a murky appearance consistent with low- grade infection. [place] induration from residual inflammatory response Procedure: Patient placed in a supine position. Prepped and draped sterile fashion to expose her right inner thigh. Incision was created over the pre- existing incision an old drain site was used again. I manually evacuated the cavity which the size of a grapefruit in diameter and approximately 1 cm in h eight. A 10. Alphonso drain was placed into the pre-existing drain site. The incision was primarily closed with 2-0 nylon. Patient was awakened, taken to recovery room in stable condition. Needle, instrument, sponge counts were correct. Plan: Follow-up in the office 1-2 weeks for drain removal. Finish any antibiotics she may have prescribed with no new antibiotics. Complications: none Post-operative Condition: stable Disposition: PACU Plan for aftercare: Home
[2021-04-24] MEDS: fentaNYL 100 MCG/2 ML INJ IV ×2 (10:04→10:10)
[2021-04-24] MEDS: OXYCODONE IR 5 MG TABLET PO ×2 (10:12→10:40)
[2021-04-24] MEDS: ACETAMINOPHEN 325 MG TABLET 650 MG PO (10:12)
--- NOTE | 2021-04-24 10:15 | SUR.PHASEI ---
Pt arrived to PACU, airway self maintained, gradually awake, c/o pain dressing remains c/d/i, small amount drainage in bulb. Dr. Sheridan spoke with pt at bedside. Pt medicated with fentanyl then oxycodone and acetaminophen.
--- NOTE | 2021-04-24 11:03 | SUR.PHASEII ---
d/c/instructions discussed with both pt and her , both voiced an understanding.
--- NOTE | 2021-04-24 11:20 | SUR.PHASEII ---
Pt dressed, ready to go left in stable condition.
== END 2021-04-24 11:24 | disposition home or self-care (01) ==
PROVIDERS: PCP Student in an Organized Health Care Education/Training Program; Referring Provider Surgery; Visit Provider Surgery
PROC: (CPT 10140; principal; 2021-04-24 09:00)
DX: S70.11XA Contusion of right thigh, initial encounter (principal)
CPT/HCPCS: 10140; 82962; J2405; J2704; J3010

== ENCOUNTER 2021-04-29 09:54 | Emergency (ER) | payer OTHER, MEDICAID, SELFPAY ==
[2021-03-20 09:20] VITALS: BMI 32.5
[2021-04-29 10:08] VITALS: BP 175/80; PULSE 63; RESP 14; TEMP 36.8; O2SAT 99; BMI 32.2
--- NOTE | 2021-04-29 11:23 | DI.US.S_ITS ---
PROCEDURE: US EXTREMITY NONVASC LOWER RT INDICATIONS: RIGHT THIGH WOUND TECHNIQUE: Real-time scanning was performed of the surgical site at the right medial knee, inferior to the incision , with image documentation. COMPARISON: None. FINDINGS: There is a complex fluid collection which measures 6.4 x 1.4 x 5.3 cm within the subcutaneous tissues. No internal vascularity. No peripheral hyperemia. IMPRESSION: Complex fluid collection suggesting postoperative hematoma of the right medial knee. No surrounding hyperemia to suggest abscess. Dictated by: Zeynep Thorne M.D. on 04/29/2021 at 12:16 Approved by: Zeynep Thorne M.D. on 04/29/2021 at 12:17
--- NOTE | 2021-04-29 11:24 | ED_ITS ---
HPI - Wound/Laceration General Chief Complaint: Wound/Laceration Stated Complaint: Surgery on sat- drain not working Time Seen by Provider: 04/29/21 10:36 Source: patient Mode of arrival: Ambulatory History of Present Illness HPI narrative: Patient here with for evaluation of swelling of the surgical site on her right medial thigh. Patient had incision drainage of a right thigh hematoma back in March of this year. Was doing well after drain removed. However fluid recollected and was brought in for another drain placement on the of this month. Last diagnosis small client in the drained reservoir. She did able to dislodge it. However has not had drainage into the reservoir since yesterday. Thigh feels like it is swelling up again. Patient being followed by Dr. Ingrid Turner, general surgeon. No fever chills. Patient has had descending collection in the past days as she records her output. Down to 2-5 mL a day. Serosanguineous. Related Data Home Medications Medication Instructions Recorded Confirmed esomeprazole magnesium 20 mg 20 mg PO DAILY 01/12/21 04/24/21 capsule,delayed release (Nexium 24HR) levocetirizine 5 mg tablet (Xyzal) 5 mg PO DAILY 01/12/21 04/24/21 metformin 500 mg tablet,extended 1,000 mg PO DAILY 04/24/21 04/24/21 release 24 hr Previous Rx's Medication Instructions Recorded alprazolam 0.5 mg tablet 0.5 mg PO DAILY PRN #10 tab 01/19/21 atorvastatin 10 mg tablet 10 mg PO BEDTIME #90 tab 01/19/21 losartan 50 mg tablet 50 mg PO DAILY #90 tab 01/19/21 olmesartan 20 mg tablet 20 mg PO DAILY #90 tab 04/05/21 oxycodone 5 mg tablet 5 mg PO PACUNOW PRN #10 tab 04/24/21 Allergies Allergy/AdvReac Type Severity Reaction Status Date / Time No Known Drug Allergies Allergy Verified 04/29/21 10:12 Patient History Medical History Allergies Cervical cancer screening Chicken pox Hearing loss Measles Screening for HPV (human papillomavirus) Vision disorder Surgical History Anesthesia History of tooth extraction Family History Father Diabetes mellitus History of heart disease Grandmother Cervical cancer Diabetes mellitus Grandfather History of heart disease Grandmother Mental health problem Social History household members: spouse Smoking Status: Current every day smoker Smoking Status: Current every day smoker alcohol intake frequency: a few times a month Substance Use Type: does not use Exam Initial Vital Signs Initial Vital Signs: Vital Signs Temperature 98.2 F 04/29/21 10:08 Pulse Rate 63 04/29/21 10:08 Respiratory Rate 14 04/29/21 10:08 Blood Pressure 175/80 H 04/29/21 10:08 Pulse Oximetry 99 04/29/21 10:08 Course Course Course Narrative: No new issues during course of stay. Orders Ordered: ED Orders 04/29/21 11:23 US extremity nonvasc lower rt Stat Reevaluation(s) Reevaluation #1: Stitches removed from the drain. With these. Entire drain tube removed with ease. Patient tolerated very well. I did try milking the tubing before removal and no fluid in the drain tube. Time: 12:44 Consultations Consultation #1: Spoke with general surgery Dr. Turner as well as Dr. Stevens. Try milking the drain tube if no success then may remove the drain. Patient to follow-up in the office. Time: 12:14 Vital Signs Vital signs: Vital Signs - 8 hr 04/29/21 10:08 Temperature 98.2 F Pulse Rate 63 Respiratory Rate 14 Blood Pressure 175/80 H Pulse Oximetry 99 MDM - Wound/Laceration Differential Diagnosis Differential diagnosis: Likely other (Drain tube removal.) Imaging Data Extremity x-ray #1: Radiologist's Impression: [address] [address] Ultrasound Report Signed Patient: Yessica Thomas MR#: [id number] : 1960 Acct:[id number] Age/Sex: 61 / F Date of Service: 04/29/21 Loc: ED Accession Number: [id number] ?? Procedure: US extremity nonvasc lower rt Ordering Provider: Stalin Vu MD PROCEDURE:? US EXTREMITY NONVASC LOWER RT ? INDICATIONS:? RIGHT THIGH WOUND ? TECHNIQUE:? Real-time scanning was performed of the surgical site at the right medial knee, inferior to the incision , with image documentation.? ? COMPARISON:? None. ? FINDINGS:? There is a complex fluid collection which measures 6.4 x 1.4 x 5.3 cm within the subcutaneous tissues.? No internal vascularity.? No peripheral hyperemia. ? IMPRESSION:? Complex fluid collection suggesting postoperative hematoma of the right medial knee. No surrounding hyperemia to suggest abscess.? ? Dictated by: Zeynep Thorne M.D. on 04/29/2021 at 12:16 ? ? Approved by: Zeynep Thorne M.D. on 04/29/2021 at 12:17 ? MDM Narrative Medical decision making narrative: Appropriate for discharge home. Exam reassuring. Instructions and directions followed by general surgeons. Patient agrees with treatment plan. Drain tube removed successfully. Return precautions reviewed with patient and . Patient has appointment next Monday with Dr. Turner Discharge Plan Departure Patient Disposition: Home Clinical Impression: Encounter for change or removal of drains Instructions: DI with Wound Drains Activity Restrictions/Additional Instructions: Your drain tube has been removed. Change dressing daily. There may be continued oozing from the opening of the skin. This is to be expected. Call Dr. Turner office today for office re-evaluation tomorrow or Monday. Return if worse or for any questions or concerns Prescriptions: No Action atorvastatin 10 mg tablet 10 mg PO BEDTIME Qty: 90 3RF losartan 50 mg tablet 50 mg PO DAILY Qty: 90 3RF Hold Instructions: Losartan Shortage alprazolam 0.5 mg tablet 0.5 mg PO DAILY PRN (Reason: Situational anxiety) Qty: 10 1RF Hold Instructions: Change to #10 1RF with next fill. esomeprazole magnesium [Nexium 24HR] 20 mg capsule,delayed release(DR/EC) 20 mg PO DAILY 0RF Hold Instructions: Trial of cessation, replace with famotidine? levocetirizine [Xyzal] 5 mg tablet 5 mg PO DAILY 0RF olmesartan 20 mg tablet 20 mg PO DAILY Qty: 90 1RF Label Comments: replacement for when pt runs out of her losartan metformin 500 mg tablet extended release 24 hr 1,000 mg PO DAILY 0RF oxycodone 5 mg Tablet 5 mg PO PACUNOW PRN (Reason: Mild or moderate pain) Qty: 10 0RF Referrals: oJse Roy MD [Primary Care Provider] -
[2021-04-29 12:45] VITALS: BP 155/77; PULSE 62; RESP 18; O2SAT 99
--- NOTE | 2021-04-29 12:45 | PC.NURSE ---
VY drain removed by Dr Vu, dressed with gauze and tape.
== END 2021-04-29 12:50 | disposition home or self-care (01) ==
PROVIDERS: Emergency Provider Emergency Medicine; PCP Student in an Organized Health Care Education/Training Program; Referring Provider Surgery
DX: T85.698A Other mechanical complication of other specified internal prosthetic devices, implants and grafts, initial encounter (principal); T81.89XA Other complications of procedures, not elsewhere classified, initial encounter
CPT/HCPCS: 76882; 99283

== ENCOUNTER → 2021-07-20 10:07 | Outpatient (CLI) | payer OTHER, MEDICAID, SELFPAY ==
[2021-03-20 09:20] VITALS: BMI 32.5
[2021-07-20 12:04] LABS: Hemoglobin A1C% w Est Avg Glu 6.8 % (4.0-6.0)
== END ==
PROVIDERS: PCP Student in an Organized Health Care Education/Training Program; Referring Provider Student in an Organized Health Care Education/Training Program; Visit Provider Student in an Organized Health Care Education/Training Program
DX: E11.9 Type 2 diabetes mellitus without complications (principal)
CPT/HCPCS: 36415; 83036

== ENCOUNTER → 2022-02-10 11:36 | Outpatient (CLI) | payer OTHER, MEDICAID, SELFPAY ==
[2021-03-20 09:20] VITALS: BMI 32.5
[2022-02-10 12:19] LABS: Hemoglobin A1C% w Est Avg Glu 6.6 % (4.0-6.0)
[2022-02-10 12:28] LABS: BUN Creatinine Ratio 15.8 (6-22); Blood Urea Nitrogen 9 mg/dL (7-17); Carbon Dioxide 24 mmol/L (22-32); Chloride 103 mmol/L (98-107); Cholesterol 158 mg/dL (140-199); Estimated Glomerular Filt Rate > 60 mL/min (>60); Glucose 114 mg/dL (80-110); HDL Cholesterol 69 mg/dL (40-60); HEMOLYSIS < 15 (0-50); LDL Cholesterol Calculated 74 mg/dL (<100); Potassium 4.2 mmol/L (3.4-5.1); Sodium 137 mmol/L (137-145); Triglycerides 76 mg/dL (35-150)
[2022-02-10 13:13] LABS: Vitamin B12 586 pg/mL (239-931)
[2022-02-10 15:23] LABS: Creatinine Urine Random 46.2 mg/dL
[2022-02-10 15:28] LABS: Microalbumin Urine Random < 0.6 mg/dL (0-1.6)
== END ==
PROVIDERS: PCP Student in an Organized Health Care Education/Training Program; Referring Provider Student in an Organized Health Care Education/Training Program; Visit Provider Student in an Organized Health Care Education/Training Program
DX: E11.69 Type 2 diabetes mellitus with other specified complication (principal); E11.9 Type 2 diabetes mellitus without complications; E78.5 Hyperlipidemia, unspecified; I10 Essential (primary) hypertension; Z79.899 Other long term (current) drug therapy
CPT/HCPCS: 36415; 80048; 80061; 82043; 82570; 82607; 83036

== ENCOUNTER → 2022-03-29 08:11 | Outpatient (CLI) | payer OTHER, MEDICAID, SELFPAY ==
[2021-03-20 09:20] VITALS: BMI 32.5
--- NOTE | 2022-03-29 | DI.MG.S_ITS ---
BILATERAL DIGITAL SCREENING MAMMOGRAM 3D/2D WITH CAD: 03/29/2022 CLINICAL: Routine screening. Comparison is made to exams dated: 01/18/2021 mammogram - [facility], 12/21/2016 mammogram, and 12/02/2015 mammogram - [facility]. There are scattered areas of fibroglandular density in both breasts (category b / 25%-50% glandular tissue). Current study was also evaluated with a Computer Aided Detection (CAD) system. There are benign calcifications in the left breast. No significant masses, calcifications, or other findings are seen in either breast. There has been no significant interval change. IMPRESSION: BENIGN There is no mammographic evidence of malignancy. A 1 year screening mammogram is recommended. Based on the Tyrer Cuzick model (a risk assessment model) the patient's lifetime risk is 9.4% and her 10 year risk is 3.8%. According to the ACR, ACS, and NCCN guidelines, an annual breast MRI exam along with mammogram is recommended if the patient's lifetime risk is 20% or greater. This exam was interpreted at Station ID: [id number]. NOTE: For mammograms, a report in lay terms will be sent to the patient. Approximately 15% of breast malignancies will not be visualized mammographically. In the management of a palpable breast mass, a negative mammogram must not discourage biopsy of a clinically suspicious lesion. Electronically Signed By: Allen gandara/nicky:03/29/2022 18:46:03 letter sent: Normal Exam ACR BI-RADS Category 2: Benign Finding(s) 3342F
== END ==
PROVIDERS: PCP Student in an Organized Health Care Education/Training Program; Referring Provider Student in an Organized Health Care Education/Training Program; Visit Provider Student in an Organized Health Care Education/Training Program
DX: Z12.31 Encounter for screening mammogram for malignant neoplasm of breast (principal)
CPT/HCPCS: 77063; 77067

== ENCOUNTER → 2022-05-21 11:26 | Outpatient (CLI) | payer OTHER, MEDICAID, SELFPAY ==
[2021-03-20 09:20] VITALS: BMI 32.5
== END ==
PROVIDERS: PCP Student in an Organized Health Care Education/Training Program; Visit Provider Registered Nurse
DX: R30.0 Dysuria (principal)
CPT/HCPCS: 81002; 87086

== ENCOUNTER → 2022-08-11 08:14 | Outpatient (CLI) | payer OTHER, MEDICAID, SELFPAY ==
[2021-03-20 09:20] VITALS: BMI 32.5
[2022-08-11 09:08] LABS: Cholesterol 155 mg/dL (140-199); HDL Cholesterol 76 mg/dL (40-60); LDL Cholesterol Calculated 66 mg/dL (<100); Triglycerides 67 mg/dL (35-150)
[2022-08-12 05:54] LABS: x Labcorp Estim. Avg Glu (eAG) 137 mg/dL (.); x Labcorp Hemoglobin A1c 6.4 % (4.8-5.6)
== END ==
PROVIDERS: Student in an Organized Health Care Education/Training Program; PCP Pediatrics; Referring Provider Pediatrics; Visit Provider Pediatrics
DX: E11.69 Type 2 diabetes mellitus with other specified complication (principal); E78.5 Hyperlipidemia, unspecified
CPT/HCPCS: 36415; 80061; 83036

== ENCOUNTER → 2023-01-23 06:59 | Outpatient (CLI) | payer OTHER, MEDICAID, SELFPAY ==
[2022-12-20 14:39] VITALS: BMI 32.5
[2023-01-23 07:57] LABS: Add Manual Diff / Slide Review NO; Basophils Absolute Auto 100 /uL (0-100); Basophils Percent Auto 0.7 % (0-2); Eosinophils Absolute Auto 300 /uL (0-450); Eosinophils Percent Auto 3.9 % (2-4); Hematocrit 36.3 % (36-46); Hemoglobin 12.5 g/dL (12.0-16.0); Lymphocytes Absolute Auto 1600 /uL (1100-4500); Lymphocytes Percent Auto 19.5 % (25-40); Mean Corpuscular HGB Conc 34.4 % (30-36); Mean Corpuscular Volume 89.9 fL (80-100); Monocytes Absolute Auto 500 /uL (0-900); Neutrophils Absolute Auto 5900 /uL (1500-7000); Neutrophils Percent Auto 69.9 % (50-75); Platelet Count 364 X10^3/uL (150-400); Red Blood Cell Count 4.04 X10^6/uL (4.0-5.2); Red Cell Distribution Width 13.3 % (11.6-14.8); White Blood Cell Count 8.4 X10^3/uL (4.5-11.0)
[2023-01-23 08:19] LABS: Alanine Aminotransferase 26 IU/L (<35); Albumin 4.1 g/dL (3.5-5.0); Albumin Globulin Ratio 1.6 (1.0-2.8); Alkaline Phosphatase 75 U/L (38-126); Aspartate Aminotransferase 29 IU/L (14-36); BUN Creatinine Ratio 17.2 (6-22); Bilirubin Total 0.7 mg/dL (0.2-1.3); Blood Urea Nitrogen 10 mg/dL (7-17); Calcium 9.7 mg/dL (8.4-10.2); Carbon Dioxide 28 mmol/L (22-32); Chloride 101 mmol/L (98-107); Cholesterol 147 mg/dL (140-199); Estimated Glomerular Filt Rate > 60 mL/min (>60); Globulin 2.5 g/dL (1.7-4.1); Glucose 125 mg/dL (80-110); HDL Cholesterol 84 mg/dL (40-60); HEMOLYSIS < 15 (0-50); LDL Cholesterol Calculated 51 mg/dL (<100); Potassium 4.7 mmol/L (3.4-5.1); Sodium 136 mmol/L (137-145); Total Protein 6.6 g/dL (6.3-8.2); Triglycerides 58 mg/dL (35-150)
[2023-01-23 08:22] LABS: Hemoglobin A1C% w Est Avg Glu 6.7 % (4.0-6.0)
[2023-01-23 10:24] LABS: Creatinine Urine Random 11.1 mg/dL
[2023-01-23 10:32] LABS: Microalbumin Urine Random < 0.6 mg/dL (0-1.6)
[2023-01-23 17:31] LABS: HIV 1 & 2 Ab/Ag 4th Gen Combo NEGATIVE (NEGATIVE); Hep C Virus Ab w/Reflex Quant NEGATIVE s/c (NEGATIVE)
== END ==
PROVIDERS: PCP Family Medicine; Referring Provider Family Medicine; Visit Provider Family Medicine
DX: Z00.00 Encounter for general adult medical examination without abnormal findings (principal); I10 Essential (primary) hypertension; E11.9 Type 2 diabetes mellitus without complications; E11.69 Type 2 diabetes mellitus with other specified complication; E78.5 Hyperlipidemia, unspecified
CPT/HCPCS: 36415; 80053; 80061; 82043; 82570; 83036; 85025; 86803; 87389

== ENCOUNTER → 2023-04-27 10:08 | Outpatient (CLI) | payer OTHER, MEDICAID, SELFPAY ==
[2022-12-20 14:39] VITALS: BMI 32.5
[2023-04-27 11:18] LABS: Magnesium 1.9 mg/dL (1.6-2.3)
[2023-04-27 11:45] LABS: Thyroid Stimulating Hormone 1.87 uIU/mL (0.47-4.68)
== END ==
PROVIDERS: PCP Family Medicine; Referring Provider Internal Medicine Cardiovascular Disease; Visit Provider Internal Medicine Cardiovascular Disease
DX: I10 Essential (primary) hypertension (principal); E78.5 Hyperlipidemia, unspecified; E11.9 Type 2 diabetes mellitus without complications; Z82.49 Family history of ischemic heart disease and other diseases of the circulatory system
CPT/HCPCS: 36415; 83735; 84443

== ENCOUNTER → 2023-05-02 11:35 | Outpatient (CLI) | payer OTHER, MEDICAID, SELFPAY ==
[2022-12-20 14:39] VITALS: BMI 32.5
--- NOTE | 2023-05-02 | DI.MG.S_ITS ---
BILATERAL DIGITAL SCREENING MAMMOGRAM 3D/2D WITH CAD: 05/02/2023 CLINICAL: Routine screening. Comparison is made to exams dated: 03/29/2022 mammogram, 01/18/2021 mammogram - [facility], and 12/21/2016 mammogram - [facility]. There are scattered areas of fibroglandular density in both breasts (category b / 25%-50% glandular tissue). Current study was also evaluated with a Computer Aided Detection (CAD) system. There are benign calcifications in the left breast. No significant masses, calcifications, or other findings are seen in either breast. There has been no significant interval change. IMPRESSION: BENIGN There is no mammographic evidence of malignancy. A 1 year screening mammogram is recommended. Based on the Tyrer Cuzick model (a risk assessment model) the patient's lifetime risk is 9.2% and her 10 year risk is 3.8%. According to the ACR, ACS, and NCCN guidelines, an annual breast MRI exam along with mammogram is recommended if the patient's lifetime risk is 20% or greater. This exam was interpreted at Station ID: [id number]. NOTE: For mammograms, a report in lay terms will be sent to the patient. Approximately 15% of breast malignancies will not be visualized mammographically. In the management of a palpable breast mass, a negative mammogram must not discourage biopsy of a clinically suspicious lesion. Electronically Signed By: Manuel ricks/nicky:05/02/2023 12:18:53 letter sent: Normal Exam ACR BI-RADS Category 2: Benign Finding(s) 3342F
== END ==
PROVIDERS: PCP Family Medicine; Referring Provider Family Medicine; Visit Provider Family Medicine
DX: Z12.31 Encounter for screening mammogram for malignant neoplasm of breast (principal); R92.323 Mammographic fibroglandular density, bilateral breasts
CPT/HCPCS: 77063; 77067

== ENCOUNTER → 2023-06-09 07:59 | Outpatient (CLI) | payer OTHER, MEDICAID, SELFPAY ==
[2022-12-20 14:39] VITALS: BMI 32.5
--- NOTE | 2023-06-09 07:59 | DI.ECHO.S_ITS ---
[facility] +---------+ : : [address] [place] : : : : [id number] : : : : Phone: [phone]+ Echocardiogram Report + + :Name: PERRI SLAUGHTER Study Date: 06/09/2023 Height: 64 in : :[facility] ReadingLocation: Weight: 190 lb : : Gender: Female BSA: 1.9 m2 : :: 1960 Age: 63 yrs BP: 154/69 mmHg: :Reason For Study: MURMUR : :Ordering Physician: NAVDEEP, : :UNA Performed By: Gal Proctor : :Referring: UNA SETHI : + + Interpretation Summary The left ventricle is normal in size. The left ventricular ejection fraction is normal. The ejection fraction is estimated to be 60-65%. MV E/A: 1.1 Med Peak E' Jason: 7.7 cm/sec E/E' med: 14.6 Diastolic parameters suggest probable elevated filling pressures. The right ventricle is normal in size and function. There is mild tricuspid regurgitation. The right ventricular systolic pressure is estimated to be at least 33 mmHg based on an estimated right atrial pressure of 3 mm Hg. Procedure: A two-dimensional transthoracic echocardiogram with color flow and Doppler was performed. The study quality was technically adequate. There is no prior echocardiogram noted for this patient. The patient was in normal sinus rhythm during the exam. The heart rate ranged between 54-73 bpm during the study. Left Ventricle: The left ventricle is normal in size. Left ventricular wall thickness is mildly increased. There is no thrombus. The ejection fraction is estimated to be 60-65%. The left ventricular ejection fraction is normal. There are no focal wall motion abnormalities. MV E/A: 1.1 Med Peak E' Jason: 7.7 cm/sec E/E' med: 14.6. Diastolic parameters suggest probable elevated filling pressures. Right Ventricle: The right ventricle is normal in size and function. Atria: The left atrium is moderately dilated. Right atrial size is normal. The interatrial septum grossly appears intact with no obvious evidence for an atrial septal defect. Mitral Valve: Some restriction of posterior mitral leaflet without any significant mitral stenosis. There is moderate mitral annular calcification. The mitral valve leaflets are mildly calcified. No significant mitral valve stenosis. There is trace mitral regurgitation. Aortic Valve: The aortic valve is trileaflet. The aortic valve is slightly calcified. There is no aortic valve stenosis. No aortic regurgitation is present. Tricuspid Valve: The tricuspid valve is normal. There is no tricuspid stenosis. There is mild tricuspid regurgitation. The right ventricular systolic pressure is estimated to be at least 33 mmHg based on an estimated right atrial pressure of 3 mm Hg. Pulmonic Valve: The pulmonic valve is not well visualized. There is no pulmonic valvular stenosis. There is no pulmonic valvular regurgitation. Great Vessels: The aortic root is normal size. The dimensions of the ascending aorta are normal. The IVC is of normal diameter and collapses greater than 50% with a sniff. This suggests a low right atrial pressure of 3 mm Hg. Pericardium/ Pleura There is no pericardial effusion. There is no pleural effusion. MMode/2D Measurements & Calculations LVIDd: 4.9 cm LVOT diam: 1.8 cm LVIDs: 3.4 cm Ao root diam: 2.8 cm FS: 30.6 % asc Aorta Diam: 3.1 cm IVSd: 1.2 cm Ao Arch Diam (Prox Trans): 2.7 cm LVPWd: 1.1 cm LV winter. diameter/BSA (cm/m^2): 2.6 LV sys. diameter/BSA (cm/m^2): 1.8 LA A2 area: 23.1 cm2 RA long axis: 4.9 cm LA A4 area: 23.7 cm2 RA area: 11.9 cm2 LA length (vol): 6.0 cm RA vol: 24.9 ml LA vol: 77.9 ml RA : 13.0 ml/m2 LA vol index: 40.7 ml/m2 IVC diam: 2.0 cm RVD2 (mid): 2.9 cm TAPSE: 2.2 cm Doppler Measurements & Calculations Ao V2 max: 159.2 cm/sec LVOT Max Jason: 152.9 cm/sec Ao V2 mean: 113.5 cm/sec LV V1 max P.4 mmHg Ao max P.1 mmHg LV V1 VTI: 35.6 cm Ao mean P.8 mmHg CLYDE(I,D): 2.7 cm2 Ao V2 VTI: 35.4 cm CLYDE(V,D): 2.6 cm2 sev ratio: 1.0 CLYDE indexed to BSA (cm^2/m^2): 1.4 MV E max jason: 112.6 cm/sec TR max jason: 276.9 cm/sec MV A max jason: 103.7 cm/sec TR max P.8 mmHg MV E/A: 1.1 PA V2 max: 110.1 cm/sec Med Peak E' Jason: 7.7 cm/sec PA V2 mean: 81.7 cm/sec E/E' med: 14.6 PA mean P.9 mmHg Lat Peak E' Jason: 9.8 cm/sec PA pr(Accel): 24.2 mmHg E/E' lat: 11.5 E/e' average: 13.0 MV dec time: 0.20 sec SV(LVOT): 95.4 ml Reading Physician:02:53 PM
== END ==
LOC: ECHO 07:59
PROVIDERS: PCP Family Medicine; Referring Provider Internal Medicine Cardiovascular Disease; Visit Provider Internal Medicine Cardiovascular Disease
DX: R01.1 Cardiac murmur, unspecified (principal); I08.1 Rheumatic disorders of both mitral and tricuspid valves
CPT/HCPCS: 93306

== ENCOUNTER → 2023-08-23 07:39 | Outpatient (CLI) | payer OTHER, MEDICAID, SELFPAY ==
[2022-12-20 14:39] VITALS: BMI 32.5
== END ==
PROVIDERS: PCP Family Medicine; Visit Provider Student in an Organized Health Care Education/Training Program
DX: J02.9 Acute pharyngitis, unspecified (principal)
CPT/HCPCS: 87070; 87880

== ENCOUNTER → 2023-08-28 08:49 | Outpatient (CLI) | payer OTHER, MEDICAID, SELFPAY ==
[2022-12-20 14:39] VITALS: BMI 32.5
--- NOTE | 2023-08-28 08:50 | DI.RAD.S_ITS ---
PROCEDURE: XR CHEST 2V INDICATIONS: Cough TECHNIQUE: 2 views of the chest were acquired. COMPARISON: None. FINDINGS: Surgical changes and devices: None. Lungs and pleura: Lungs are clear. No pleural effusions or pneumothorax. Mediastinum: Mediastinal contours are normal. Heart size is normal. Bones and chest wall: No suspicious bony abnormalities. Soft tissues appear unremarkable. IMPRESSION: No acute pulmonary process. Dictated by: Brenda Avilez M.D. on 08/28/2023 at 9:28 Approved by: Brenda Avilez M.D. on 08/28/2023 at 9:28
== END ==
LOC: RAD 08:50
PROVIDERS: PCP Family Medicine; Referring Provider Nurse Practitioner Family; Visit Provider Nurse Practitioner Family
DX: R05.9 Cough, unspecified (principal)
CPT/HCPCS: 71046

== ENCOUNTER → 2024-02-17 09:07 | Outpatient (CLI) | payer OTHER, SELFPAY ==
[2022-12-20 14:39] VITALS: BMI 32.5
--- NOTE | 2024-02-17 09:08 | DI.RAD.S_ITS ---
PROCEDURE: XR CHEST 2V INDICATIONS: Cough TECHNIQUE: 2 views of the chest were acquired. COMPARISON: [facility], CR, XR CHEST 2V, 08/28/2023, 8:49. FINDINGS: Surgical changes and devices: None. Lungs and pleura: Lungs are clear. No pleural effusions or pneumothorax. Mediastinum: Mediastinal contours are normal. Heart size is normal. Bones and chest wall: No suspicious bony abnormalities. Soft tissues appear unremarkable. IMPRESSION: No acute cardiopulmonary abnormality is seen. Dictated by: Radha Hannah M.D. on 02/17/2024 at 8:37 Approved by: Radha Hannah M.D. on 02/17/2024 at 8:38
== END ==
PROVIDERS: PCP Family Medicine; Referring Provider Physician Assistant Surgical; Visit Provider Physician Assistant Surgical
DX: R05.9 Cough, unspecified (principal)
CPT/HCPCS: 71046

== ENCOUNTER → 2024-03-13 07:58 | Outpatient (CLI) | payer BC, SELFPAY ==
[2022-12-20 14:39] VITALS: BMI 32.5
[2024-03-13 08:46] LABS: Hemoglobin 12.6 g/dL (12.0-16.0); Mean Corpuscular HGB Conc 33.3 % (30-36); Mean Corpuscular Hemoglobin 30.9 PG (26-34); Mean Corpuscular Volume 92.6 fL (80-100); Platelet Count 370 X10^3/uL (150-400); Red Cell Distribution Width 13.9 % (11.6-14.8); White Blood Cell Count 7.4 X10^3/uL (4.5-11.0)
[2024-03-13 08:55] LABS: Hemoglobin A1C% w Est Avg Glu 6.4 % (4.0-6.0)
[2024-03-13 09:03] LABS: Alanine Aminotransferase 32 IU/L (<35); Albumin 4.3 g/dL (3.5-5.0); Alkaline Phosphatase 96 U/L (38-126); Aspartate Aminotransferase 41 IU/L (14-36); BUN Creatinine Ratio 19.4 (6-22); Bilirubin Total 0.4 mg/dL (0.2-1.3); Blood Urea Nitrogen 12 mg/dL (7-17); Calcium 9.5 mg/dL (8.4-10.2); Carbon Dioxide 25 mmol/L (22-32); Chloride 105 mmol/L (98-107); Cholesterol 161 mg/dL (140-199); Estimated Glomerular Filt Rate > 60 mL/min (>60); Globulin 2.2 g/dL (1.7-4.1); Glucose 119 mg/dL (80-110); HDL Cholesterol 85 mg/dL (40-60); HEMOLYSIS < 15 (0-50); LDL Cholesterol Calculated 65 mg/dL (<100); Potassium 4.1 mmol/L (3.4-5.1); Sodium 137 mmol/L (137-145); Total Protein 6.5 g/dL (6.3-8.2); Triglycerides 54 mg/dL (35-150)
[2024-03-13 10:07] LABS: Creatinine Urine Random 24.93 mg/dL
[2024-03-13 10:15] LABS: Microalbumin Urine Random < 0.6 mg/dL (0-1.6)
== END ==
PROVIDERS: PCP Family Medicine; Referring Provider Family Medicine; Visit Provider Family Medicine
DX: I10 Essential (primary) hypertension (principal); E11.69 Type 2 diabetes mellitus with other specified complication; E78.5 Hyperlipidemia, unspecified; E11.9 Type 2 diabetes mellitus without complications
CPT/HCPCS: 36415; 80053; 80061; 82043; 82570; 83036; 85027

== ENCOUNTER → 2024-03-21 08:39 | Outpatient (CLI) | payer BC, SELFPAY ==
[2022-12-20 14:39] VITALS: BMI 32.5
--- NOTE | 2024-03-21 08:40 | DI.CT.S_ITS ---
PROCEDURE: CT LUNG LOW DOSE SCREENING INDICATIONS: Former Smoker 40yr History TECHNIQUE: Noncontrast 2.0-2.5 mm thick sections acquired from the pulmonary apices to the posterior costophrenic angles. 7 mm thick axial MIP, and 5 mm coronal and sagittal reformats were then acquired. For radiation dose reduction, the following was used: automated exposure control, adjustment of mA and/or kV according to patient size. COMPARISON: None. FINDINGS: Image quality: Diagnostic. Lungs and Pleura: Central and peripheral airways are normal without bronchial wall thickening or bronchiectasis. There is mild pneumonitis in the posteromedial right lower lung along the paravertebral pleural surface. No other ground-glass opacities, consolidations, or suspicious nodules. No pleural effusions or pleural calcification. Lower Neck: No enlarged lymph nodes. Thyroid: Normal CT appearance. Axillae: No enlarged lymph nodes. Chest Wall: No suspicious chest wall mass. Bones: No suspicious bone lesions. Mild degenerative changes in the thoracic spine. Heart: Heart size is normal. No pericardial effusion. Moderate coronary artery calcification. Mild mitral annular calcification. Thoracic Vessels: The aorta and pulmonary arteries demonstrate normal size. Mediastinum and Ann: No enlarged lymph nodes. Esophagus: No wall thickening. No hiatal hernia. Upper Abdomen: Two calcified gallstones layering dependently near the gallbladder neck. Visible portions of upper abdominal organs are otherwise normal. IMPRESSION: Mild subpleural right lower lobe pneumonitis, nonspecific, but most likely post infectious or inflammatory. Clinical correlation recommended. No suspicious lung nodules. LUNG-RADS 1; continued annual screening, if eligible. Clinically Significant Non-pulmonary Findings: Moderate coronary artery calcification. Cholelithiasis. Dictated by: Rae Whitaker M.D. on 03/21/2024 at 15:43 Approved by: Rae Whitaker M.D. on 03/21/2024 at 15:49
[2024-03-22 09:13] LABS: Fecal Immunochemical Test Negative (Negative)
== END ==
PROVIDERS: PCP Family Medicine; Referring Provider Family Medicine; Visit Provider Family Medicine
DX: Z12.11 Encounter for screening for malignant neoplasm of colon (principal); J98.4 Other disorders of lung; I34.81 Nonrheumatic mitral (valve) annulus calcification; I25.10 Atherosclerotic heart disease of native coronary artery without angina pectoris; K80.20 Calculus of gallbladder without cholecystitis without obstruction; Z87.891 Personal history of nicotine dependence
CPT/HCPCS: 71271; 82274

== ENCOUNTER → 2024-06-07 10:00 | Outpatient (CLI) | payer BC, SELFPAY ==
[2022-12-20 14:39] VITALS: BMI 32.5
--- NOTE | 2024-06-07 10:01 | DI.US.S_ITS ---
MM diagnostic mammo BI, US breast RT limited: 06/07/2024 BI-RADS: 1 CLINICAL: 64-year old female for bilateral diagnostic mammogram and right diagnostic breast ultrasound. The patient reports right nipple pinching sensation for the past 6 months. Tyrer-Cuzick lifetime risk of 9.1%. No personal or first-degree family history of breast cancer. PRIOR EXAMS 05/02/2023, 03/29/2022, 01/18/2021. MAMMOGRAPHY TECHNIQUE: 2D and 3D (tomosynthesis) digital mammographic views obtained, with additional images as needed for full coverage. Current study was also evaluated with a Computer Aided Detection (CAD) system. ULTRASOUND TECHNIQUE TARGETED Right Breast Ultrasound: Real-time ultrasound exam was performed focused to area of clinical and/or imaging concern. DENSITY B. There are scattered areas of fibroglandular density. MAMMOGRAPHY FINDINGS Right (finding-1): Central, Retroareolar, Far Anterior depth: There is no suspicious mammographic finding to account for concern by the patient of pain/tenderness and nipple symptoms. No suspicious mass, asymmetry, microcalcification, or other abnormality seen. Left: No suspicious mass, asymmetry, microcalcification, or other abnormality seen. ULTRASOUND FINDINGS Right (finding-1): Central, Retroareolar: There is no suspicious sonographic finding to account for concern by the patient of pain/tenderness and nipple symptoms. IMPRESSION: * No evidence of malignancy. RECOMMENDATIONS Bilateral * Annual screening mammography. COMMENTS: Findings and recommendations were conveyed to the patient during today's evaluation. OVERALL ASSESSMENT CATEGORY BI-RADS-1: Negative. The [employer] recommends annual screening mammography beginning at age 40 for women with average risk of breast cancer. ELECTRONICALLY SIGNED: Henrietta Mann M.D. on 06/07/2024 at 11:38:21 AM PT Interpreting Station ID: [id number]
== END ==
PROVIDERS: PCP Family Medicine; Referring Provider Family Medicine; Visit Provider Family Medicine
DX: N64.4 Mastodynia (principal)
CPT/HCPCS: 76642; 77066; G0279

== ENCOUNTER → 2024-08-21 07:19 | Outpatient (CLI) | payer BC, SELFPAY ==
[2022-12-20 14:39] VITALS: BMI 32.5
[2024-08-21 10:04] LABS: Cholesterol 149 mg/dL (140-199); HDL Cholesterol 73 mg/dL (40-60); LDL Cholesterol Calculated 64 mg/dL (<100); Triglycerides 59 mg/dL (35-150)
[2024-08-21 10:06] LABS: Hemoglobin A1C% w Est Avg Glu 6.1 % (4.0-6.0)
== END ==
PROVIDERS: PCP Family Medicine; Referring Provider Family Medicine; Visit Provider Family Medicine
DX: E11.9 Type 2 diabetes mellitus without complications (principal); I10 Essential (primary) hypertension
CPT/HCPCS: 36415; 80061; 83036

== ENCOUNTER → 2025-01-25 07:34 | Outpatient (CLI) | payer BC, SELFPAY ==
[2022-12-20 14:39] VITALS: BMI 32.5
[2025-01-25 09:36] LABS: Influenza A - CEPHEID Flu A NEGATIVE (NEGATIVE); Influenza B - CEPHEID Flu B NEGATIVE (NEGATIVE)
[2025-01-25 12:17] LABS: COVID-19 CEPHEID 4-PLEX PCR Negative (Negative)
== END ==
PROVIDERS: PCP Family Medicine; Visit Provider Nurse Practitioner Family
DX: R05.1 Acute cough (principal)
CPT/HCPCS: 87637

== ENCOUNTER → 2025-01-25 08:01 | Outpatient (CLI) | payer BC, SELFPAY ==
[2022-12-20 14:39] VITALS: BMI 32.5
[2025-01-25 08:51] LABS: Hematocrit 39.4 % (36-46); Hemoglobin 13.3 g/dL (12.0-16.0); Mean Corpuscular HGB Conc 33.8 % (30-36); Mean Corpuscular Hemoglobin 31.3 PG (26-34); Mean Corpuscular Volume 92.7 fL (80-100); Platelet Count 382 X10^3/uL (150-400)
[2025-01-25 09:00] LABS: Hemoglobin A1C% w Est Avg Glu 6.5 % (4.0-6.0)
[2025-01-25 09:21] LABS: Alanine Aminotransferase 56 IU/L (<35); Albumin 4.6 g/dL (3.5-5.0); Albumin Globulin Ratio 1.9 (1.0-2.8); Alkaline Phosphatase 105 U/L (38-126); Blood Urea Nitrogen 8 mg/dL (7-17); Calcium 9.6 mg/dL (8.4-10.2); Carbon Dioxide 27 mmol/L (22-32); Chloride 104 mmol/L (98-107); Cholesterol 171 mg/dL (140-199); Estimated Glomerular Filt Rate > 60 mL/min (>60); Globulin 2.4 g/dL (1.7-4.1); Glucose 132 mg/dL (70-99); HDL Cholesterol 80 mg/dL (40-60); HEMOLYSIS < 15 (0-50); Potassium 4.6 mmol/L (3.4-5.1); Sodium 140 mmol/L (137-145); Total Protein 7.0 g/dL (6.3-8.2); Triglycerides 72 mg/dL (35-150)
[2025-01-25 10:35] LABS: Microalbumi Creatinin Ratio Ur 6.0 ug/mg CR (<30)
== END ==
PROVIDERS: PCP Family Medicine; Referring Provider Family Medicine; Visit Provider Family Medicine
DX: I10 Essential (primary) hypertension (principal); E11.69 Type 2 diabetes mellitus with other specified complication; E78.5 Hyperlipidemia, unspecified; R05.1 Acute cough
CPT/HCPCS: 36415; 80053; 80061; 82043; 82570; 83036; 85027; 87637

== ENCOUNTER → 2025-01-25 08:31 | Outpatient (CLI) | payer BC, SELFPAY ==
[2022-12-20 14:39] VITALS: BMI 32.5
--- NOTE | 2025-01-25 08:33 | DI.RAD.S_ITS ---
PROCEDURE: XR CHEST 2V INDICATIONS: Cough TECHNIQUE: 2 views of the chest were acquired. COMPARISON: [facility], CR, XR CHEST 2V, 02/17/2024, 9:09. FINDINGS: Surgical changes and devices: None. Lungs and pleura: Lungs are clear. No pleural effusions or pneumothorax. Peribronchial cuffing. Mediastinum: Mediastinal contours are normal. Heart size is normal. Bones and chest wall: No suspicious bony abnormalities. Soft tissues appear unremarkable. IMPRESSION: Peribronchial cuffing, typically indicating infectious or inflammatory bronchitis. Dictated by: Vicente Sumner M.D. on 01/25/2025 at 10:00 Approved by: Vicente Sumner M.D. on 01/25/2025 at 10:01
== END ==
PROVIDERS: PCP Family Medicine; Referring Provider Family Medicine; Visit Provider Family Medicine
DX: R05.1 Acute cough (principal); I10 Essential (primary) hypertension; E11.69 Type 2 diabetes mellitus with other specified complication; E78.5 Hyperlipidemia, unspecified
CPT/HCPCS: 36415; 71046; 80053; 80061; 82043; 82570; 83036; 85027; 87637

== ENCOUNTER → 2025-02-20 10:34 | Outpatient (CLI) | payer BC, SELFPAY ==
[2022-12-20 14:39] VITALS: BMI 32.5
== END ==
PROVIDERS: PCP Family Medicine; Referring Provider Family Medicine; Visit Provider Family Medicine
DX: Z12.11 Encounter for screening for malignant neoplasm of colon (principal)
CPT/HCPCS: 82274